=== PATIENT | male | born 2000 | race Caucasian/White ===

== ENCOUNTER 2022-11-23 15:30 | Outpatient (CLI) | payer BC, SELFPAY ==
[2022-11-23 21:18] LABS: Chloride* 101 mmol/L (96-114); Potassium* 4.7 mmol/L (3.6-5.1); Sodium* 137 mmol/L (135-149)
[2022-11-23 21:21] LABS: Blood Urea Nitrogen* 10 mg/dL (5-24); Carbon Dioxide* 28 mmol/L (20-32); Cholesterol* 211 mg/dL (90-199); Creatinine* 0.8 mg/dL (0.5-1.5); Estimated Glomerular Filt Rate 127 ml/min; Glucose* 100 mg/dL (60-115)
[2022-11-23 21:22] LABS: Calcium* 10.1 mg/dL (8.4-10.6); HDL Cholesterol* 59 mg/dL (>=40); LDL Cholesterol Calculated 124 mg/dL (<100); Triglycerides* 141 mg/dL (40-149)
[2022-11-27 18:15] LABS: Renin Activity 1.4 ng/mL/hr
== END 2022-11-23 15:31 | disposition home or self-care (01) ==
PROVIDERS: PCP Emergency Medicine; Visit Provider Emergency Medicine
DX: I10 Essential (primary) hypertension (principal); Z13.6 Encounter for screening for cardiovascular disorders; Z13.29 Encounter for screening for other suspected endocrine disorder
CPT/HCPCS: 80048; 80061; 82088; 84244; 84443

== ENCOUNTER 2024-02-26 13:44 | Outpatient (CLI) | payer BC, SELFPAY ==
--- NOTE | 2024-02-26 14:00 | US_ITS ---
Patient: MRALEEN DE LA CRUZ Facility:?[facility] Patient ID:?[id number] Site Patient ID:?[id number]. Site :?[id number] Study:?US-Abdomen/Pelvis RENAL ARTERY DOPPLER-02/26/2024 2:38:10 PM Ordering Physician:?STARLA AU M.D. Final Report: Indication: Persistent hypertension, evaluate for renal artery stenosis. Technique: Routine renal artery duplex ultrasound examination, with 2D and spectral analysis, and color doppler imaging. Comparison: None available. Findings: The right kidney measures 11.4 x 4.8 x 5.2 cm, in the left kidney measures 11.5 x 5.8 x 4.9 cm. Renal cortex appears unremarkable bilaterally. No suspicious mass. Peak systolic velocities within the visualized renal arteries within normal limits. The upstroke appears sharp. Resistive indices are normal. Impression: 1. No sonographic evidence of a hemodynamically significant renal artery stenosis. 2. No evidence of hydronephrosis. Dictated by Eddie Paul MD @ 02/27/2024 7:48:01 AM Signed by:?Eddie Paul MD @02/27/2024 8:38:50 AM (Electronic Signature)
== END 2024-02-26 13:45 | disposition home or self-care (01) ==
LOC: US 13:46
PROVIDERS: PCP Emergency Medicine; Visit Provider Emergency Medicine
DX: I10 Essential (primary) hypertension (principal); R94.31 Abnormal electrocardiogram [ECG] [EKG]
CPT/HCPCS: 76775; 93306; 93975

== ENCOUNTER 2024-12-26 13:12 | Outpatient (CLI) | payer OTHER, SELFPAY | END 2024-12-26 13:13 | disposition home or self-care (01) | LOC: LKVREF 13:13 | PROVIDERS: PCP Emergency Medicine; Visit Provider Physician Assistant Medical | DX: R30.0 Dysuria (principal); Z11.3 Encounter for screening for infections with a predominantly sexual mode of transmission | CPT/HCPCS: 87086; 87491; 87591 ==

== ENCOUNTER 2025-01-13 10:27 | Outpatient (CLI) | payer OTHER, SELFPAY | END 2025-01-13 10:28 | disposition home or self-care (01) | LOC: NFLDREF 01-14 01:36 | PROVIDERS: PCP Emergency Medicine; Referring Provider Emergency Medicine; Visit Provider Emergency Medicine | DX: I10 Essential (primary) hypertension (principal) | CPT/HCPCS: 80048 ==